=== PATIENT | female | born 1960 | race Caucasian/White ===

== ENCOUNTER 2018-05-08 07:17 | Emergency (ER) | payer OTHER ==
[~2018-05-08] VITALS: Ht 172.7 cm; Wt 104.3 kg
[~2018-05-08 07:17] MED LIST: WAL-PHED10 MG PO; [UNRECOGNIZED DRUG - MIXTURE]
[2018-05-08] MEDS ORDERED: SYNTHROID150 MCG PO (07:31)
[2018-05-08] MEDS ORDERED: GLUMETZA500 MG (07:33)
[2018-05-08] MEDS ORDERED: LOSARTAN-HCTZ1 EAC1 PO (07:33)
[2018-05-08] MEDS ORDERED: NORFLEX100MG PO (11:07)
== END 2018-05-08 11:09 | disposition home or self-care (01) ==
LOC: ER 07:17
DX: R51 Headache (principal); M54.2 Cervicalgia

== ENCOUNTER 2020-07-14 06:19 | Outpatient (CLI) | payer OTHER ==
[~2020-07-14 06:19] MED LIST changes: +GLUMETZA500 MG; +LOSARTAN-HCTZ1 EAC1 PO; +NORFLEX100MG PO; +SYNTHROID150 MCG PO
== END 2020-07-14 06:50 | disposition home or self-care (01) ==
LOC: LAB 06:19
PROVIDERS: ATTEND Internal Medicine Hematology & Oncology
DX: D50.8 Other iron deficiency anemias (principal); I10 Essential (primary) hypertension; D55.0 Anemia due to glucose-6-phosphate dehydrogenase [G6PD] deficiency; D51.1 Vitamin B12 deficiency anemia due to selective vitamin B12 malabsorption with proteinuria; D51.0 Vitamin B12 deficiency anemia due to intrinsic factor deficiency; B82.9 Intestinal parasitism, unspecified; R97.0 Elevated carcinoembryonic antigen [CEA]; R97.8 Other abnormal tumor markers; N39.0 Urinary tract infection, site not specified; E11.9 Type 2 diabetes mellitus without complications; D51.3 Other dietary vitamin B12 deficiency anemia; K91.2 Postsurgical malabsorption, not elsewhere classified; Z98.84 Bariatric surgery status; C73 Malignant neoplasm of thyroid gland; I73.89 Other specified peripheral vascular diseases

== ENCOUNTER → 2020-07-15 06:55 | Outpatient (CLI) | payer OTHER | END | disposition home or self-care (01) | LOC: LAB 06:55 | PROVIDERS: ATTEND Internal Medicine Hematology & Oncology | DX: D50.8 Other iron deficiency anemias (principal); I10 Essential (primary) hypertension; D55.0 Anemia due to glucose-6-phosphate dehydrogenase [G6PD] deficiency; D51.1 Vitamin B12 deficiency anemia due to selective vitamin B12 malabsorption with proteinuria; D51.0 Vitamin B12 deficiency anemia due to intrinsic factor deficiency; B82.9 Intestinal parasitism, unspecified; R97.8 Other abnormal tumor markers; R97.0 Elevated carcinoembryonic antigen [CEA]; N39.0 Urinary tract infection, site not specified; E11.9 Type 2 diabetes mellitus without complications; D51.3 Other dietary vitamin B12 deficiency anemia; K91.2 Postsurgical malabsorption, not elsewhere classified; Z98.84 Bariatric surgery status; C73 Malignant neoplasm of thyroid gland; I73.89 Other specified peripheral vascular diseases ==

== ENCOUNTER 2021-04-05 15:52 | Emergency (ER) | payer OTHER ==
[~2021-04-05] VITALS: Ht 170.2 cm; Wt 117.9 kg
== END 2021-04-05 20:24 | disposition home or self-care (01) ==
LOC: ER 15:52
DX: R60.0 Localized edema (principal); T39.015A Adverse effect of aspirin, initial encounter

== ENCOUNTER → 2021-07-07 07:19 | Outpatient (CLI) | payer OTHER | END | disposition home or self-care (01) | LOC: LAB 07:19 | PROVIDERS: ATTEND Internal Medicine Hematology & Oncology | DX: I10 Essential (primary) hypertension (principal); R74.02 Elevation of levels of lactic acid dehydrogenase [LDH]; K76.89 Other specified diseases of liver; C50.919 Malignant neoplasm of unspecified site of unspecified female breast; R97.8 Other abnormal tumor markers; R97.0 Elevated carcinoembryonic antigen [CEA]; D47.2 Monoclonal gammopathy; C90.00 Multiple myeloma not having achieved remission; R71.8 Other abnormality of red blood cells; C73 Malignant neoplasm of thyroid gland; N63.10 Unspecified lump in the right breast, unspecified quadrant; E11.9 Type 2 diabetes mellitus without complications; K91.2 Postsurgical malabsorption, not elsewhere classified; Z98.84 Bariatric surgery status; I73.89 Other specified peripheral vascular diseases; R92.0 Mammographic microcalcification found on diagnostic imaging of breast ==